=== PATIENT | male | born 1960 ===

== ENCOUNTER 2020-08-01 05:38 | Outpatient (CLI) | payer OTHER ==
[~2020-08-01] VITALS: Ht 180.3 cm; Wt 96.6 kg
== END 2020-08-02 16:04 | disposition home or self-care (01) ==
LOC: PREOP 05:38
PROVIDERS: ATTEND Surgery
DX: Z01.818 Encounter for other preprocedural examination (principal)

== ENCOUNTER 2020-08-08 10:44 | Day surgery (SDC) | payer OTHER ==
[~2020-08-08] VITALS: Ht 180 cm; Wt 96.6 kg
[2020-08-08] VITALS (10 sets, daily range): BP systolic 93–125; BP diastolic 53–82
[2020-08-08] MEDS ORDERED: LACTATED RINGERS 1,000 ML IV STA (10:57)
[2020-08-08] MEDS ORDERED: PROPOFOL INJECTION 50 ML IV ONE (11:23)
[2020-08-08] MEDS ORDERED: MIDAZOLAM 2 MG/2 ML (VERSED) VIAL ONE (11:23)
--- NOTE | 2020-08-08 11:50 | Progress Note-Post Operative ---
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
--- NOTE | 2020-08-08 11:51 | Discharge Inst-Simple/Standard ---
Discharge Inst-Standard Patient Instructions/Follow Up Plan of Care/Instructions/FU: 2 weeks Lucho Activity as Tolerated: Yes Discharge Diet: Regular Diet RHIANNON PEREYRA DO Aug 08, 2020 11:51
--- NOTE | 2020-08-08 14:16 | Anesthesia-General Post-Op ---
MAC Patient Condition Mental Status/LOC: Same as Preop Cardiovascular: Satisfactory Nausea/Vomiting: Absent Respiratory: Satisfactory Pain: Controlled Complications: Absent Post Op Complications Complications None Follow Up Care/Instructions Patient Instructions None needed. Anesthesiology Discharge Order Discharge Order Patient is doing well, no complaints, stable vital signs, no apparent adverse anesthesia problems. No complications reported per nursing. MAISHA RUSSELL FUSING MACHINE TENDER Aug 08, 2020 14:16
--- NOTE | 2020-08-08 15:13 | OPERATIVE REPORT ---
DATE OF SERVICE: 08/08/2020 PREOPERATIVE DIAGNOSIS: Screening colonoscopy. POSTOPERATIVE DIAGNOSIS: Probable left prostate nodule. Otherwise, normal colonoscopy. PROCEDURE: Colonoscopy. SURGEON: Rhiannon Yepez DO ANESTHESIA: Per MOTOR COACH CHAUFFEUR. ESTIMATED BLOOD LOSS: None. COMPLICATIONS: None. INDICATIONS: The patient is a 60-year-old male needing screening colonoscopy. He understands risks and benefits of procedure and wished to proceed with procedure. Consent was signed in the chart. DESCRIPTION OF PROCEDURE: The patient was taken to the endoscopy suite, placed in left lateral recumbent position. Timeout was performed. Digital rectal exam was performed. [place] like a small left prostate nodule. No other palpable polyps, masses or ulcerations. Scope was inserted into the rectum, where it advanced all the way to cecum with minimal difficulty. Prep was adequate. Scope was slowly retracted back. No polyps, masses or ulcerations within the cecum, ascending, transverse, descending and sigmoid colon. Once in the rectum, scope was retroflexed noting no other pathology. Scope was returned to its normal position, slowly withdrawn until completely removed. The patient tolerated procedure well without any complications, taken to recovery room in stable condition. RECOMMENDATIONS: The patient will follow up in 2 weeks to discuss ultrasound of the prostate. We will need repeat colonoscopy in 10 years unless family history of colon cancer, which would then be 5 years. Any issues before that be seen at that time. Job ID: [id number] DocumentID: [id number] Dictated Date: 08/08/2020 11:53:46 Passenger Car Upholsterer Apprentice Date: 08/08/2020 15:12:33 Dictated By: RHIANNON YEPEZ DO
== END 2020-08-08 13:21 | disposition home or self-care (01) ==
LOC: ENDO 10:44
PROVIDERS: ATTEND Surgery
DX: Z12.11 Encounter for screening for malignant neoplasm of colon (principal); E66.9 Obesity, unspecified; Z68.29 Body mass index [BMI] 29.0-29.9, adult; Z79.899 Other long term (current) drug therapy

== ENCOUNTER → 2020-10-19 | Outpatient (CLI) | payer OTHER ==
--- NOTE | 2020-10-19 14:15 | Diagnostic Imaging Report ---
INDICATION: Hematuria. PROCEDURE: Ultrasound abdomen complete. TECHNIQUE: Multiple real-time grayscale images were obtained of the abdomen in various projections. Liver is normal in size at 13.8 cm. No discrete liver mass is identified. The portal vein is patent and shows normal direction of flow. There appear to be gallbladder polyps present but no definite gallstones are seen. No significant wall thickening is identified. Extrahepatic bile duct is dilated to approximately 11 mm. No definite common duct stone is seen. Pancreas is obscured by bowel gas. Spleen is normal in size at 8 cm. Aorta is nonaneurysmal. IVC is patent. The right and left kidneys show normal cortical thickness and echogenicity. No calculi or hydronephrosis is seen. There is no ascites. IMPRESSION: Extrahepatic biliary ductal dilatation measuring up to 11 mm. Exact etiology is indeterminate. CT may be useful for further evaluation. The study is otherwise unremarkable. Dictated by: Dictated on workstation # [id number]
--- NOTE | 2020-10-19 14:51 | Diagnostic Imaging Report ---
PROCEDURE: US Scrotum. TECHNIQUE: Multiple real-time grayscale images were obtained over the scrotum in various projections bilaterally. INDICATION: Hematuria and pain in the left testicle. The right testicle measures 4.9 x 2.4 x 3.0 cm. The left testicle measures 4.0 x 2.1 x 3.6 cm. Both testes show homogeneous echotexture. No discrete testicular mass is seen. There is blood flow to both testes. Right epididymis is unremarkable. Left epididymis contains 2 tiny cysts, each approximately 3 mm in size. No significant hydrocele or varicocele is seen. There was an area of heterogeneity in the region of the left inguinal canal which shows some motion during Valsalva. No peristalsis is seen. This most likely represents a hernia but may just contain fat. No other abnormalities are seen. IMPRESSION: 1. No evidence of testicular mass or vascular compromise. 2. Tiny left epididymal head cysts. 3. Heterogeneity in the left inguinal canal which may represent herniated fat. Dictated by: Dictated on workstation # [id number]
== END ==
LOC: RAD FS 11:50
PROVIDERS: ATTEND Nurse Practitioner Family
DX: N50.812 Left testicular pain (principal); R31.29 Other microscopic hematuria; R19.09 Other intra-abdominal and pelvic swelling, mass and lump
CPT/HCPCS: 76700; 76870

== ENCOUNTER → 2021-01-15 | Outpatient (CLI) | payer OTHER ==
--- NOTE | 2021-01-15 16:20 | Diagnostic Imaging Report ---
CT ABDOMEN/PELVIS WO TECHNIQUE: Unenhanced CT imaging of the abdomen and pelvis was performed. 2-D reformats are created and submitted for interpretation. Automatic exposure controls were utilized to optimize patient dose. INDICATION: Right-sided abdominal pain COMPARISON: None available. FINDINGS: Evaluation of the abdominal viscera is mildly limited without contrast. Lower chest: The lung bases are clear. No pericardial or pleural effusion. Peritoneum: No free intraperitoneal air or fluid. Liver and biliary system: Unenhanced liver is normal. Cholelithiasis. No features of acute cholecystitis. Spleen and Pancreas: Spleen is normal. Unenhanced pancreas is grossly normal. Adrenals: Normal. tract: There are a few punctate nonobstructing left renal stones, largest measuring 3 mm. No right-sided renal stones. No ureteral stones on either side. Urinary bladder is decompressed, limiting assessment. There is a simple cyst in the mid right kidney measuring 1.5 x 1.0 cm. Prostate is not enlarged. GI tract: Stomach is decompressed. No bowel obstruction. No pericolonic inflammatory changes. Normal appendix. Vasculature and Lymph nodes: Normal caliber aorta. No abdominal or pelvic lymphadenopathy. Musculoskeletal: No concerning osseous lesion. IMPRESSION: 1. Nonobstructing punctate left-sided renal calculi. 2. No right-sided renal calculi or obstructive uropathy. 3. No appendicitis, colitis or diverticulitis. Dictated by: Dictated on workstation # [id number]
== END ==
LOC: RAD FS 12:08
PROVIDERS: ATTEND Urology
DX: N20.0 Calculus of kidney (principal)
CPT/HCPCS: 74176

== ENCOUNTER 2022-08-29 05:37 | Outpatient (CLI) | payer SELFPAY ==
[~2022-08-29] VITALS: Ht 177.8 cm; Wt 104.5 kg
== END 2022-08-29 15:37 ==
LOC: PREOP 05:37
PROVIDERS: ATTEND Surgery
DX: Z01.818 Encounter for other preprocedural examination (principal)